=== PATIENT | male | born 1995 | race African-American/Black ===

== ENCOUNTER 2022-04-05 12:17 | Emergency (ER) | payer OTHER ==
[~2022-04-05] VITALS: Ht 170.2 cm; Wt 72.0 kg
[2022-04-05 12:22] VITALS: BP 113/59
== END 2022-04-05 17:11 | disposition left against medical advice (07) ==
LOC: ER 12:17
DX: Z53.21 Procedure and treatment not carried out due to patient leaving prior to being seen by health care provider (principal)